=== PATIENT | female | born 1995 ===

== ENCOUNTER 2023-08-16 09:23 | Outpatient (CLI) | payer OTHER | END 2023-08-16 09:41 | disposition home or self-care (01) | LOC: SONOGRAMA 09:23 | PROVIDERS: ATTEND Obstetrics & Gynecology | DX: N92.6 Irregular menstruation, unspecified (principal); N64.4 Mastodynia; N64.51 Induration of breast; R92.0 Mammographic microcalcification found on diagnostic imaging of breast ==